=== PATIENT | male | born 1995 | race African-American/Black ===

== ENCOUNTER 2025-03-12 13:27 | Emergency (ER) | payer MEDICAID ==
[~2025-03-12] VITALS: Ht 190.5 cm; Wt 100.0 kg
[2025-03-12 13:30] VITALS: BP 107/62; PULSE 70; RESP 14; TEMP 37; O2SAT 99
[2025-03-12 14:25] LABS: BASOPHILS % 1.1 % (0.0-2.0); EOSINOPHILS % 2.1 % (0.0-5.0); HEMATOCRIT. 41.4 % (42.0-52.0); HEMOGLOBIN. 13.9 g/dL (14.0-18.0); LYMPHOCYTES % 31.8 % (20.0-50.0); MEAN PLATELET VOLUME 7.4 fl (7.4-10.4); MONOCYTES % 9.6 % (2.0-8.0); NEUTROPHILS % 55.4 % (40.0-76.0); PLATELET 257 x1000/uL (130-400); RED BLOOD CELL COUNT 4.80 mill/uL (4.7-6.1); RED CELL DISTRIBUTION WIDTH 13.8 % (11.6-14.6)
[2025-03-12 14:41] LABS: CREATININE 1.3 mg/dL (0.6-1.3); UREA NITROGEN BLOOD 7 mg/dL (9-23)
== END 2025-03-12 16:33 | disposition home or self-care (01) ==
LOC: ER 13:27
DX: G56.00 Carpal tunnel syndrome, unspecified upper limb (principal); Z88.0 Allergy status to penicillin
CPT/HCPCS: 36415; 80048; 85025; 99283